=== PATIENT | male | born 1970 | race Caucasian/White ===

== ENCOUNTER 2017-07-08 16:28 | Emergency (ER) | payer SELFPAY ==
[~2017-07-08] VITALS: Ht 185.4 cm; Wt 85.0 kg
[2017-07-08 16:39] VITALS: BP 130/87
[2017-07-08] MEDS ORDERED: KETOROLAC 30 MG/1 ML IM ONE (17:00)
[2017-07-08] MEDS ORDERED: METHOCARBAMOL 750 MG TABLET PO ONE (17:00)
[2017-07-08] MEDS ORDERED: KETOROLAC 30 MG/1 ML ONE (17:03)
[2017-07-08] MEDS ORDERED: METHOCARBAMOL 750 MG TABLET ONE (17:03)
== END 2017-07-08 18:29 | disposition home or self-care (01) ==
LOC: ED 18:05
DX: S39.012A Strain of muscle, fascia and tendon of lower back, initial encounter (principal); S46.811A Strain of other muscles, fascia and tendons at shoulder and upper arm level, right arm, initial encounter; S80.02XA Contusion of left knee, initial encounter; S20.212A Contusion of left front wall of thorax, initial encounter; E11.9 Type 2 diabetes mellitus without complications; V49.49XA Driver injured in collision with other motor vehicles in traffic accident, initial encounter; Y93.89 Activity, other specified; Y92.89 Other specified places as the place of occurrence of the external cause; Y99.2 Volunteer activity
CPT/HCPCS: 71101; 72072; 72110; 73030; 73564; 96372; 99284; J1885

== ENCOUNTER 2019-12-07 13:46 | Emergency (ER) | payer OTHER ==
[~2019-12-07] VITALS: Ht 182.9 cm; Wt 89.5 kg
[2019-12-07 13:59] VITALS: BP 136/78
[2019-12-07] MEDS ORDERED: ACETAMINOPHEN 325 MG TABLET ONE (16:51)
[2019-12-07] MEDS ORDERED: ACETAMINOPHEN 325 MG TABLET PO ONE (17:00)
== END 2019-12-07 17:10 | disposition home or self-care (01) ==
LOC: ED 16:45
DX: S06.0X1A Concussion with loss of consciousness of 30 minutes or less, initial encounter (principal); S16.1XXA Strain of muscle, fascia and tendon at neck level, initial encounter; S00.81XA Abrasion of other part of head, initial encounter; R22.9 Localized swelling, mass and lump, unspecified; I10 Essential (primary) hypertension; E11.9 Type 2 diabetes mellitus without complications; R11.0 Nausea; F17.200 Nicotine dependence, unspecified, uncomplicated; W01.0XXA Fall on same level from slipping, tripping and stumbling without subsequent striking against object, initial encounter; Y93.89 Activity, other specified; Y92.69 Other specified industrial and construction area as the place of occurrence of the external cause; Y99.8 Other external cause status
CPT/HCPCS: 70450; 70486; 72125; 99285

== ENCOUNTER 2020-09-12 21:37 | Emergency (ER) | payer OTHER ==
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
--- NOTE | 2020-09-12 23:06 | NUR ---
PT REPORTS TOOK 3 ASPIRIN LAST NIGHT AND 3 ALLEVE THIS MORNING W/ NO RELIEF.
[2020-09-13] MEDS ORDERED: IBUPROFEN 600 MG TABLET ONE (00:21)
--- NOTE | 2020-09-13 00:22 | NUR ---
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
[2020-09-13] MEDS ORDERED: IBUPROFEN 200 MG TABLET PO ONE (00:30)
--- NOTE | 2020-09-13 00:38 | NUR ---
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
--- NOTE | 2020-09-13 00:41 | NUR ---
PT MEDICATED PER EMAR. RESTING ON GURNEY W/ CALL LIGHT IN REACH AND SIDE RAILS UPX2. RESP EVEN AND UNLABORED, NADN. AWAITING XR READ.
[2020-09-13 01:28] VITALS: BP 107/66
--- NOTE | 2020-09-13 01:32 | NUR ---
Patient given discharge instructions and they have confirmed that they understand the instructions. Patient ambulatory with steady gait.
== END 2020-09-13 13:34 | disposition home or self-care (01) ==
LOC: ED 22:00
DX: S16.1XXA Strain of muscle, fascia and tendon at neck level, initial encounter (principal); E11.9 Type 2 diabetes mellitus without complications; V49.49XA Driver injured in collision with other motor vehicles in traffic accident, initial encounter; Y93.89 Activity, other specified; Y92.410 Unspecified street and highway as the place of occurrence of the external cause; Y99.8 Other external cause status
CPT/HCPCS: 72072; 72125; 99284

== ENCOUNTER 2020-09-16 17:23 | Emergency (ER) | payer SELFPAY ==
[~2020-09-16] VITALS: Ht 182.9 cm; Wt 88.3 kg
[2020-09-16] MEDS ORDERED: ACETAMINOPHEN 500 MG TABLET PO ONE (18:00)
[2020-09-16] MEDS ORDERED: KETOROLAC 30 MG/1 ML IM ONE (18:00)
--- NOTE | 2020-09-16 18:12 | NUR ---
PT TO IMAGING.
--- NOTE | 2020-09-16 18:35 | NUR ---
PT MEDICATED FOR PAIN.
[2020-09-16 19:05] VITALS: BP 128/87
== END 2020-09-16 19:18 | disposition home or self-care (01) ==
LOC: ED 19:16
DX: G89.11 Acute pain due to trauma (principal); R07.89 Other chest pain; M25.552 Pain in left hip; I10 Essential (primary) hypertension; E11.9 Type 2 diabetes mellitus without complications; F17.210 Nicotine dependence, cigarettes, uncomplicated; V49.49XA Driver injured in collision with other motor vehicles in traffic accident, initial encounter; Y93.89 Activity, other specified; Y92.410 Unspecified street and highway as the place of occurrence of the external cause; Y99.8 Other external cause status
CPT/HCPCS: 71045; 73502; 93005; 96372; 99284; 99406; J1885